=== PATIENT | female | born 1975 | race African-American/Black ===

== ENCOUNTER → 2025-04-10 | Outpatient (CLI) | payer SELFPAY ==
--- NOTE | 2025-04-10 13:30 | RAD_ITS ---
EXAM: XR Lumbosacral Spine Flexion/Extension Only, 2 or 3 Views CLINICAL INDICATION: SEGMENTAL AND SOMATIC DYSFUNCTION OF THE LUMBAR REGION TECHNIQUE: Lateral flexion/extension views of the lumbar spine and sacrum. COMPARISON: No relevant prior studies available. FINDINGS: VERTEBRAE: Anterior spondylolisthesis of L4 over L5 by 10 mm. This could be further evaluated with MRI. Multilevel degenerative changes, disc disease, facet arthropathy of L3 to S1, most prominent at L5-S1. No acute fracture. SACRUM/COCCYX: Unremarkable as visualized. No acute fracture. DISC SPACES: No acute findings. No significant narrowing. SOFT TISSUES: Unremarkable. RAD/L/S Spine Min 4 Views IMPRESSION: Anterior spondylolisthesis of L4 over L5 by 10 mm. This could be further evalu ated with MRI. Reading Location: [id number]
--- NOTE | 2025-04-10 13:30 | RAD_ITS ---
PROCEDURE: CERV SPINE 4 OR 5 VIEWS 04/10/2025 REASON FOR EXAM: SEGMENTAL AND SOMATIC DYSFUNCTION OF THE CERVICAL REGION TECHNIQUE: 5 views of the cervical spine. COMPARISON: None. FINDINGS: There are moderate diffuse spondylotic changes. Findings are demonstrated to by diffuse disc space narrowing, osteophyte formation and degenerative endplate sclerosis. There is diffuse facet joint arthropathy with secondary bilateral neural foramina narrowing. No fracture or dislocation is seen. No aggressive lytic or blastic bony lesion is noted. Reversal of the cervical lordosis, probably muscular spasm and pain. Grade 1 anterolisthesis of C2 on C3 measuring 3.2 mm. Mild bilateral multifocal neural foraminal narrowing from C3-C7 levels. RAD/Cerv Spine 4 or 5 Views IMPRESSION: Spondylosis. Reading [facility]
== END | disposition home or self-care (01) ==
LOC: RAD 13:05
PROVIDERS: Visit Provider Chiropractor Orthopedic
DX: M99.03 Segmental and somatic dysfunction of lumbar region (principal); M99.01 Segmental and somatic dysfunction of cervical region
CPT/HCPCS: 72050; 72110